=== PATIENT | female | born 1950 | race Hispanic/Latino ===

== ENCOUNTER → 2018-12-11 | Outpatient (CLI) | payer OTHER ==
[~2018-12-11] MED LIST: ALFAGAN OU; ASPI-1181 PO; ATOR10 PO; BRIN10DR OU; CALC-1030 PO; CHOL100018 PO; IRON PO; LATANOPROST OU; MAGN250T10 PO; METF-444 PO; REGADENOSON 0.4 MG/5 ML PF SYG IVP SCH; VALS160T2 PO; VITA1CAP85 PO
== END | disposition home or self-care (01) ==
LOC: SHCH 08:52
PROVIDERS: ATTEND Internal Medicine Cardiovascular Disease
DX: I73.9 Peripheral vascular disease, unspecified (principal); R06.00 Dyspnea, unspecified; R06.02 Shortness of breath
CPT/HCPCS: 78452; 93017; 96374; A9500 ×2; J2785

== ENCOUNTER → 2022-07-05 | Outpatient (CLI) | payer MEDICARE ==
[~2022-07-05] MED LIST changes: -ASPI-1181 PO; +ASPI-1443 PO; -REGADENOSON 0.4 MG/5 ML PF SYG IVP SCH
== END | disposition home or self-care (01) ==
LOC: RAH 13:53
PROVIDERS: ATTEND Physical Medicine & Rehabilitation
DX: M47.26 Other spondylosis with radiculopathy, lumbar region (principal); M48.061 Spinal stenosis, lumbar region without neurogenic claudication
CPT/HCPCS: 72148

== ENCOUNTER → 2023-03-09 | Outpatient (CLI) | payer MEDICARE | END | disposition home or self-care (01) | LOC: SHCH 10:59 | PROVIDERS: ATTEND Internal Medicine Cardiovascular Disease | DX: I70.293 Other atherosclerosis of native arteries of extremities, bilateral legs (principal) | CPT/HCPCS: 93925 ==

== ENCOUNTER → 2024-11-03 | Outpatient (CLI) | payer MEDICARE ==
[2024-11-03] MEDS: REGADENOSON 0.4 MG/5 ML PF SYG IVP ONE (14:14)
--- NOTE | 2024-11-06 00:55 | HMCSR ---
APPROVED REPORT Height: 5 ft 1in Weight: 170 lbs TEST INDICATIONS Z91.89 OTHER SPEC PERSONAL RISK FACTORS The imaging protocol used to acquire images was Rest Tc-99m/stress Tc-99m 1 day Consent: The procedure was explained and understood by the patient. Informerd consent was witnessed Fernie Clifford RN First, low dose rest was performed then high dose stress. RESTING DATA: The resting ekg shows: NSR Rest SPECT myocardial perfusion imaging was performed in supine position 77 minutes following the int ravenous injection of 11.4 mCi of Tc-99 Sestamibi. Time of rest injection: 09:25: Date: 11/03/2024 Time of rest imagin:42: Date: 11/03/2024 PHARMACOLOGIC STRESS: Pharmacologic stress test was performed by injecting regadenoson 0.4 mg IV push followed by the intra venous injection of 32.4 mCi of Tc-99 Sestamibi. Time of stress injection: 11:10: Date: 11/03/2024 Time of stress imagin:33: Date: 11/03/2024 Heart Rate at time of stress injection: 76 bpm. Gated Stress SPECT was performed 83 minutes after stress injection. The images were gated to evaluate regional wall motion and calculate left ventricular ejection fracti on. STRESS DETAILS Reason for Termination: Infusion complete Stress Symptoms: Fatigue Max HR Achieved: 92 bpm % of APMHR Achieved: 62 Max Blood Pressure: 130/60 mmHg Stress ECG: NSR Arrhythmia: No. ST Change: No. Study quality was fair. Artifact: breast artifact, motion artifact, diaphragmatic artifact LEFT VENTRICLE Size: The left ventricular size is small. Systolic Function:The left ventricular systolic function is hyperdynamic. Wall Motion: No regional wall motion abnormalities noted. The left ventricular ejection fraction was calculated to be > 70%.TID = . LV PERFUSION There is a small sized, mild intensity, fully reversible perfusion defect seen in the apical inferior lateral wall, that extends to the apex. RV Size/Shape The right ventricle was not well-visualized. IMPRESSION Stress ECG Summary: Nondiagnostic Conclusion Abnormal Lexiscan stress test. There is a small sized, mild intensity, fully reversible perfusion defect seen in the apical inferior lateral wall, that extends to the apex. The left ventricular size is small. No regional wall motion abnormalities noted. The left ventricular systolic function is hyperdynamic. Post-rest LVEF was calculated to be > 70%. Stress ECG Summary: Nondiagnostic Study indicates a moderate risk for cardiovascular events.
== END | disposition home or self-care (01) ==
LOC: SHCH 08:56
PROVIDERS: ATTEND Internal Medicine Cardiovascular Disease
DX: R94.39 Abnormal result of other cardiovascular function study (principal); Z91.89 Other specified personal risk factors, not elsewhere classified; Z79.899 Other long term (current) drug therapy
CPT/HCPCS: 78452; 93017; J2785; A9500 ×2

== ENCOUNTER → 2025-07-28 | Outpatient (CLI) | payer MEDICARE ==
[~2025-07-28] MED LIST changes: -ALFAGAN OU; +ASCO10004 PO; -ASPI-1443 PO; -ATOR10 PO; +ATOR10TA69 PO; -BRIN10DR OU; -CALC-1030 PO; +CALC-866 PO; -CHOL100018 PO; +CLOP-31 PO; +FERR-82 PO; +FOLI0.8C PO; +FOLI200T12 PO; +GLIP5TAB15 PO; -IRON PO; -LATANOPROST OU; -MAGN250T10 PO; +MECO10005 PO; -METF-444 PO; +TIRZ2.5P SQ; -VALS160T2 PO; -VITA1CAP85 PO; +ZINC220T4 PO
--- NOTE | 2025-07-28 19:36 | HMCIMG ---
EXAM: XR Left Shoulder, 2 Views. CLINICAL HISTORY: 74-year-old female with pain in the left shoulder. COMPARISON: None provided. FINDINGS: BONES: No acute fracture or focal osseous lesion. JOINTS: No dislocation. The joint spaces are normal. SOFT TISSUES: Minimal calcific density in the supraspinatus, possibly calcific tendinitis. Recommend MRI for further evaluation. IMPRESSION: 1. No acute osseous abnormality. 2. Minimal calcific density in the supraspinatus, possibly calcific tendinitis. Recommend MRI for further evaluation. /[place]
--- NOTE | 2025-07-28 22:16 | HMCIMG ---
EXAM: XR Cervical spine, 5 Views total. CLINICAL HISTORY: 74 year old female with cervicalgia. COMPARISON: None provided. FINDINGS: BONES: No acute fracture or aggressive appearing osseous lesion. Posterior vertebral body alignment is within normal limits in the cervical spine. DISCS/DEGENERATIVE CHANGES: Mild degenerative changes of the cervical spine. The disc spaces are preserved. SOFT TISSUES: No prevertebral soft tissue swelling evident in the cervical spine. The visualized lungs appear clear. VASCULATURE: Heavy atherosclerotic calcifications are seen at the left carotid bulb, follow up with ultrasound is recommended. IMPRESSION: 1. Mild degenerative changes of the cervical spine. 2. Heavy atherosclerotic calcifications in the left carotid bulb. Follow up with ultrasound. /[place]
== END | disposition home or self-care (01) ==
LOC: RAH 11:38
PROVIDERS: ATTEND Physical Medicine & Rehabilitation
DX: M47.812 Spondylosis without myelopathy or radiculopathy, cervical region (principal); I65.22 Occlusion and stenosis of left carotid artery; M54.2 Cervicalgia; M99.01 Segmental and somatic dysfunction of cervical region; M25.512 Pain in left shoulder; M25.812 Other specified joint disorders, left shoulder
CPT/HCPCS: 72050; 73030